=== PATIENT | male | born 1990 | race Caucasian/White ===

== ENCOUNTER → 2021-02-02 08:42 | Outpatient (CLI) | payer SELFPAY ==
--- NOTE | 2021-02-02 08:45 | US_ITS ---
PROCEDURE: US ABDOMEN LIMITED CLINICAL INDICATION: INGUINAL BULGE COMPARISON: No exams were available for comparison FINDINGS: Small nodes are present in the left inguinal region. These measure up to 1.7 cm. Small subcutaneous hypoechoic area is present also in the left inguinal area on the left measuring 4 x 2 mm of unknown etiology. No obvious bowel containing hernia. On right side there are small nodes present measuring up to 1.3 cm. No bowel containing hernia apparent. IMPRESSION: No obvious bowel containing hernia. Small bilateral inguinal lymph nodes. Subcutaneous small area of decreased echogenicity on the left of unknown etiology may be related to small subcutaneous cyst or even small area of infection. Please correlate with clinical parameters Dictated by: Jerry Kurtz MD 02/02/2021 13:53 Jerry Kurtz MD in [place] 02/02/2021 13:53
== END ==
PROVIDERS: PCP Nurse Practitioner Family; Visit Provider Nurse Practitioner Family
DX: R19.09 Other intra-abdominal and pelvic swelling, mass and lump (principal)
CPT/HCPCS: 76705

== ENCOUNTER 2023-11-07 05:41 | Emergency (ER) | payer SELFPAY ==
[2023-11-07 05:43] VITALS: BP 132/88; PULSE 67; RESP 16; TEMP 36.7; O2SAT 99; BMI 17.7
[2023-11-07 05:47] VITALS: BP 132/88; PULSE 70; O2SAT 98
--- NOTE | 2023-11-07 06:18 | [facility].EDGENADL ---
Discharge Plan Disposition Patient Disposition: Home, Self-Care Condition: Good Referrals Follow up/Referrals: Lalo Calhoun DO [Staff Physician] - See instructions Provider,MD Maurice [Primary Care Provider] - See instructions Activity Restrictions/Add. Instructions Additional Instructions/Restrictions: You were seen in the ED today due to fever/chills and joint pain. Labs, swabs, urine were reassuring. Please follow-up with primary care. You may take Tylenol/ibuprofen at home for fever and pain. Return to the ED if symptoms worsen or if new concerning symptoms arise. Thank you. Clinical Impressions Clinical Impression: Joint pain Qualifiers: Joint pain location: unspecified Qualified Code(s): M25.50 - Pain in unspecified joint Discharge ED Provider: Carlos Yancey General Adult HPI <Giancarlo Rm MD - Last Filed: 11/07/23 07:07> General Chief complaint: PAIN Stated complaint: fever,joint pain,black stuff on feet Time Seen by Provider: 11/07/23 05:55 Mode of Arrival: Ambulatory Source of Information: Patient Limitations: No Limitations Description of Symptoms (Recalled from ER Triage Doc. by RN): Pt presents with joint pain in his left hip and right knee. States he hashad a fever and chills for past 5 days. Temp is 98.1 today. Pt is also concerned for a black toothpaste like tar that has been growing between his toes for 10 yrs that he states smells like ammonia . History of Present Illness HPI narrative: 33-year-old male without significant past medical history presents for multiple complaints. He reports that he had a fever without other symptoms for the last 5 days approximately. Has not had fever today or yesterday though. He reports that he has had some transient joint pain. Yesterday his left knee and left hip hurt. Those are now getting better. He reports pain in his right knee now. Denies any swelling. No history of drug use, denies any concern for STDs. Reports no recent sore throat or viral symptoms. He also reports that he has had chronic growth of a dark substance between his toes. He reports it is worse during the winter but better during the summer. Reports its usually painful but feels okay now. He reports that he does not usually see doctors. He does not want anything for pain. Related Data Allergies Allergy/AdvReac Type Severity Reaction Status Date / Time No Known Allergies Allergy Verified 11/07/23 06:20 PFSH <Giancarlo Rm MD - Last Filed: 11/07/23 07:07> [facility] Disclaimer: The information contained in this section may have been updated after the patient was seen, as this information can be updated by other users. Social History (Updated 11/07/23 @ 07:07 by Giancarlo Rm MD) Smoking Status: Current every day smoker alcohol intake: never current occupational status: employed Travel in the last 8 weeks: None <Giancarlo Rm MD - Last Filed: 11/07/23 07:07> ROS Obtained: Yes All systems reviewed & no additional complaints except as documented Physical Exam <Giancarlo Rm MD - Last Filed: 11/07/23 07:07> General General appearance: alert and in no apparent distress Head Head exam: atraumatic and normocephalic Eye Eye exam: Present normal appearance, PERRL and EOMI ENT ENT exam: Present normal oropharynx and normal external ear exam Neck Neck exam: Present normal inspection and full ROM Chest Chest inspection: Present normal inspection and symmetric chest wall rise; Absent tenderness Respiratory Respiratory exam: Present normal lung sounds bilaterally; Absent respiratory distress Cardiovascular Cardiovascular exam: Present regular rate and normal rhythm Abdominal Exam Abdominal exam: Present soft; Absent distention, tenderness or guarding Extremities Exam Extremities exam: Present normal inspection and other (There is a adherent black substance between the patient's toes. No evidence of secondary infection.); Absent edema or joint swelling Back Exam Back exam: Present normal inspection; Absent tenderness Neurological Exam Neurological exam: Present alert and oriented X3; Absent motor sensory deficit Psychiatric Psychiatric exam: Present normal affect and normal mood Skin Skin exam: Present warm, dry and normal color Lymphatic Lymphatic Findings: no adenopathy Medical Decision Making <Giancarlo Rm MD - Last Filed: 11/07/23 07:07> Medical Records Medical records reviewed: Yes I reviewed the patient's medical records. Reji Inquiry Pt receiving controlled substance: No Reji was queried for this patient: No Vital Signs: 11/07/23 05:43 11/07/23 05:47 11/07/23 06:25 Temperature 98.1 F Temperature Source Oral Pulse Rate 70 66 Pulse Rate [Left] 67 Respiratory Rate 16 16 Blood Pressure 132/88 132/88 Blood Pressure [Right Arm] 132/88 Blood Pressure Mean 96 Blood Pressure Mean [Right Arm] 102 Blood Pressure Source Automatic Cuff Blood Pressure Source [Right Arm] Automatic Cuff Blood Pressure Position Sitting Blood Pressure Position [Right Arm] Sitting 02 Sat by Pulse Oximetry 99 98 99 Oxygen Delivery Method Room Air Room Air 11/07/23 06:49 11/07/23 07:32 Temperature Temperature Source Pulse Rate 61 60 Pulse Rate [Left] Respiratory Rate 18 Blood Pressure 137/85 134/86 Blood Pressure [Right Arm] Blood Pressure Mean 93 94 Blood Pressure Mean [Right Arm] Blood Pressure Source Blood Pressure Source [Right Arm] Blood Pressure Position Blood Pressure Position [Right Arm] 02 Sat by Pulse Oximetry 99 99 Oxygen Delivery Method Lab Data Lab results reviewed: Yes I reviewed the patient's lab results. Lab Results 11/07/23 06:25: WBC 9.8, RBC 4.86, Hgb 15.3, Hct 46.1, MCV 95.0 H, MCH 31.5 H, MCHC 33.1, RDW 13.8, Plt Count 288, MPV 7.5, Neut % (Auto) 56.3, Lymph % (Auto) 32.1, [place] % (Auto) 6.9, Eos % (Auto) 3.2, Baso % (Auto) 1.3, Neut # (Auto) 5.5, Lymph # (Auto) 3.2, [place] # (Auto) 0.7, Eos # (Auto) 0.3, Baso # (Auto) 0.1, ESR 9, Sodium 137, Potassium 4.0, Chloride 101, Carbon Dioxide 25, Anion Gap 15.0, BUN 15, Creatinine 1.00, Estimated Creat Clear 80, Estimated GFR 86, Est GFR ( Amer) 103, Glucose 104 H, Calcium 9.5, Total Bilirubin 0.6, AST 30, ALT 28, Alkaline Phosphatase 84, C-Reactive Protein 36.8 H, Total Protein 7.7, Albumin 4.6, Globulin 3.1, Albumin/Globulin Ratio 1.5, SARS-CoV-2 (PCR) Not detected, Influenza A Untype (PCR) Not detected, Influenza Type B (PCR) Not detected 11/07/23 06:35: Urine Color Dark yellow, Urine Appearance Clear, Urine pH 6.0, Ur Specific [place] >= 1.030, Urine Protein Negative, Urine Glucose (UA) Negative, Urine Ketones Trace, Urine Blood 2+, Urine Nitrate Negative, Urine Bilirubin 1+ A, Urine Urobilinogen 0.2, Ur Leukocyte Esterase Negative, Urine RBC 5-10, Urine WBC Occasional, Ur Squamous Epith Cells None, Urine Bacteria Trace, Urine Mucus 3+ 11/07/23 07:40: Group A Strep Rapid Negative 11/07/23 06:25 11/07/23 06:25 Orders (Tests/Meds): ORDERS Category Date Time Status CBC w/Auto Diff [Complete Blood Count Auto Diff] Stat Lab 11/07/23 06:25 Completed CMP [Comprehensive Metabolic Panel] Stat Lab 11/07/23 06:25 Completed CRP [C-Reactive Protein] Stat Lab 11/07/23 06:25 Completed ESR [Erythrocyte Sedimentation Rate] Stat Lab 11/07/23 06:25 Completed Lyme Ab, Modified 2-Tier Stat Lab 11/07/23 06:25 Received Rapid PCR Covid and Flu A/B Stat Lab 11/07/23 06:25 Completed Strep Scrn Group A (Rapid) Stat Lab 11/07/23 07:40 Completed UA [Urinalysis and Microscopic] Stat Lab 11/07/23 06:35 Completed Strep Screen Confirmation Stat Micro 11/07/23 07:40 Received Medical Decision Narrative: 33-year-old male without significant past medical history presents with fever for several days without an obvious source, now having migratory arthralgias in his lower extremities. Also complains of chronic toe issues.. History was obtained interactive discussion with patient,. On arrival, patient is [afebrile, hemodynamically stable, satting appropriately, alert, oriented x4, GCS 15], moving all extremities spontaneously. Full physical exam performed and significant for no joint swelling, erythema, sensory or motor deficits. Differential includes but is not limited to viral arthritis, Lyme disease, strep, flu, reactive arthritis Patient declined any medication for symptomatic management and correction of underlying abnormalities. Workup initiated including CBC CMP UA gonorrhea chlamydia ESR CRP Lyme testing, COVID flu. <Carlos Yancey MD - Last Filed: 11/07/23 08:06> Vital Signs: 11/07/23 05:43 11/07/23 05:47 11/07/23 06:25 Temperature 98.1 F Temperature Source Oral Pulse Rate 70 66 Pulse Rate [Left] 67 Respiratory Rate 16 16 Blood Pressure 132/88 132/88 Blood Pressure [Right Arm] 132/88 Blood Pressure Mean 96 Blood Pressure Mean [Right Arm] 102 Blood Pressure Source Automatic Cuff Blood Pressure Source [Right Arm] Automatic Cuff Blood Pressure Position Sitting Blood Pressure Position [Right Arm] Sitting 02 Sat by Pulse Oximetry 99 98 99 Oxygen Delivery Method Room Air Room Air 11/07/23 06:49 11/07/23 07:32 Temperature Temperature Source Pulse Rate 61 60 Pulse Rate [Left] Respiratory Rate 18 Blood Pressure 137/85 134/86 Blood Pressure [Right Arm] Blood Pressure Mean 93 94 Blood Pressure Mean [Right Arm] Blood Pressure Source Blood Pressure Source [Right Arm] Blood Pressure Position Blood Pressure Position [Right Arm] 02 Sat by Pulse Oximetry 99 99 Oxygen Delivery Method Lab Data Lab Results 11/07/23 06:25: WBC 9.8, RBC 4.86, Hgb 15.3, Hct 46.1, MCV 95.0 H, MCH 31.5 H, MCHC 33.1, RDW 13.8, Plt Count 288, MPV 7.5, Neut % (Auto) 56.3, Lymph % (Auto) 32.1, [place] % (Auto) 6.9, Eos % (Auto) 3.2, Baso % (Auto) 1.3, Neut # (Auto) 5.5, Lymph # (Auto) 3.2, [place] # (Auto) 0.7, Eos # (Auto) 0.3, Baso # (Auto) 0.1, ESR 9, Sodium 137, Potassium 4.0, Chloride 101, Carbon Dioxide 25, Anion Gap 15.0, BUN 15, Creatinine 1.00, Estimated Creat Clear 80, Estimated GFR 86, Est GFR ( Amer) 103, Glucose 104 H, Calcium 9.5, Total Bilirubin 0.6, AST 30, ALT 28, Alkaline Phosphatase 84, C-Reactive Protein 36.8 H, Total Protein 7.7, Albumin 4.6, Globulin 3.1, Albumin/Globulin Ratio 1.5, SARS-CoV-2 (PCR) Not detected, Influenza A Untype (PCR) Not detected, Influenza Type B (PCR) Not detected 11/07/23 06:35: Urine Color Dark yellow, Urine Appearance Clear, Urine pH 6.0, Ur Specific [place] >= 1.030, Urine Protein Negative, Urine Glucose (UA) Negative, Urine Ketones Trace, Urine Blood 2+, Urine Nitrate Negative, Urine Bilirubin 1+ A, Urine Urobilinogen 0.2, Ur Leukocyte Esterase Negative, Urine RBC 5-10, Urine WBC Occasional, Ur Squamous Epith Cells None, Urine Bacteria Trace, Urine Mucus 3+ 11/07/23 07:40: Group A Strep Rapid Negative Orders (Tests/Meds): ORDERS Category Date Time Status CBC w/Auto Diff [Complete Blood Count Auto Diff] Stat Lab 11/07/23 06:25 Completed CMP [Comprehensive Metabolic Panel] Stat Lab 11/07/23 06:25 Completed CRP [C-Reactive Protein] Stat Lab 11/07/23 06:25 Completed ESR [Erythrocyte Sedimentation Rate] Stat Lab 11/07/23 06:25 Completed Lyme Ab, Modified 2-Tier Stat Lab 11/07/23 06:25 Received Rapid PCR Covid and Flu A/B Stat Lab 11/07/23 06:25 Completed Strep Scrn Group A (Rapid) Stat Lab 11/07/23 07:40 Completed UA [Urinalysis and Microscopic] Stat Lab 11/07/23 06:35 Completed Strep Screen Confirmation Stat Micro 11/07/23 07:40 Received Medical Decision Narrative: 33-year-old male without significant past medical history presents with fever for several days without an obvious source, now having migratory arthralgias in his lower extremities. Also complains of chronic toe issues.. History was obtained interactive discussion with patient,. On arrival, patient is afebrile, hemodynamically stable, satting appropriately, alert, oriented x4, GCS 15, moving all extremities spontaneously. Full physical exam performed and significant for no joint swelling, erythema, sensory or motor deficits. Differential includes but is not limited to viral arthritis, Lyme disease, strep, flu, reactive arthritis Patient declined any medication for symptomatic management and correction of underlying abnormalities. Workup initiated including CBC CMP UA gonorrhea chlamydia ESR CRP Lyme testing, COVID flu. I assumed care of the patient with lab work pending. Labs reviewed, significant only for elevated CRP. ESR is normal. Lab work otherwise unremarkable. Urinalysis negative for infection. COVID/flu and strep are negative. Gonorrhea/chlamydia and Lyme remain pending at this time. On reevaluation, patient is resting comfortably and in no distress. Vital signs remained stable. He is appropriate for discharge at this time. Referral for primary care provided. Patient counseled on home care, given strict return precautions and agreeable to plan. Procedures <Giancarlo Rm MD - Last Filed: 11/07/23 07:07> Risk/Benefits of Procedure(s) Were Explained: Yes Critical Care <Giancarlo Rm MD - Last Filed: 11/07/23 07:07> Critical Care Time Critical Care Time: No <Carlos Yancey MD - Last Filed: 11/07/23 08:06> Critical Care Time Critical Care Time: No
[2023-11-07 06:25] VITALS: BP 132/88; PULSE 66; RESP 16; O2SAT 99
[2023-11-07 06:38] LABS: Coronavirus 19, PCR Not Detected (NotDetected); Influenza A, PCR Not Detected (NotDetected); Influenza B, PCR Not Detected (NotDetected)
[2023-11-07 06:40] LABS: Basophils # 0.1 K/mm3 (0-0.2); Basophils % 1.3 % (0.1-2.0); Eosinophils # 0.3 K/mm3 (0.0-0.4); Eosinophils % 3.2 % (0.1-12.0); Hematocrit 46.1 % (42.0-52.0); Hemoglobin 15.3 g/dL (14.1-18.0); Lymphocytes # 3.2 K/mm3 (0.7-4.5); Lymphocytes % 32.1 % (10-50); Mean Corpuscular HGB Conc 33.1 g/dL (31.8-35.4); Mean Corpuscular Hemoglobin 31.5 pg (27.0-31.2); Mean Platelet Volume 7.5 fl (7.4-10.4); Monocytes # 0.7 K/mm3 (0.1-1.0); Monocytes % 6.9 % (1.7-9.3); Neutrophils # 5.5 K/mm3 (1.8-7.8); Neutrophils % 56.3 % (37.0-80.0); Platelet Count 288 K/mm3 (142-424); Red Blood Count 4.86 M/mm3 (4.60-6.20); Red Cell Distribution Width 13.8 % (11.5-17.5); White Blood Count 9.8 K/mm3 (4.8-10.8)
[2023-11-07 06:47] LABS: Alanine Aminotransferase 28 U/L (12-78); Albumin Level 4.6 g/dl (3.5-5.0); Albumin/Globulin Ratio 1.5 (1.1-1.8); Alkaline Phosphatase 84 U/L (38-126); Aspartate Amino Transferase 30 U/L (17-59); Bilirubin,Total 0.6 mg/dl (0.2-1.3); Blood Urea Nitrogen 15 mg/dl (9-20); Calcium 9.5 mg/dl (8.4-10.2); Carbon Dioxide 25 mmol/L (22.0-30.0); Chloride 101 mmol/L (98-107); Creatinine Clearance Estimated 80 mL/min (50-200); Estimated Glomerular Filt Rate 86 ml/min (>60); GFR (African American) 103 ML/MIN (>60); Globulin 3.1 g/dL (1.3-3.2); Glucose 104 mg/dl (74-100); Sodium 137 mmol/L (136-145); Total Protein,Serum 7.7 g/dl (6.3-8.2)
[2023-11-07 06:49] VITALS: BP 137/85; PULSE 61; O2SAT 99
[2023-11-07 06:52] LABS: C-Reactive Protein 36.8 mg/L (0-4)
[2023-11-07 06:54] LABS: Microscopic, Urine URINE MICROSCOPIC (MICROSCOPIC)
[2023-11-07 07:00] LABS: Appearance,Urine CLEAR (Clear); Blood, Urine 2+ (Negative); Glucose,Urine (UA) Negative (Negative); Ketones,Urine TRACE (Negative); Leukocyte Esterase,Urine Negative (Negative); Nitrate,Urine Negative (Negative); Protein,Urine Negative (Negative); Specific Gravity, Urine >= 1.030 (1.005-1.030); Urobilinogen,Urine 0.2 EU/dl (0.2)
[2023-11-07 07:05] LABS: Bilirubin,Urine 1+ (Negative)
[2023-11-07 07:06] LABS: Color,Urine Dark Yellow (Yellow)
[2023-11-07 07:26] LABS: Bacteria,Urine Trace /lpf; WBC,Urine Occasional #/hpf (0-3)
[2023-11-07 07:27] LABS: Mucus,Urine 3+ /lpf
[2023-11-07 07:32] VITALS: BP 134/86; PULSE 60; RESP 18; O2SAT 99
[2023-11-07 07:55] LABS: Erythrocyte Sedimentation Rate 9 mm/hr (0-15)
[2023-11-07 07:57] LABS: Strep Scrn Group A (Rapid) Negative (Negative)
--- NOTE | 2023-11-07 07:59 | PC.NURSE ---
ED MD AT BEDSIDE TO UPDATE PT
[2023-11-07 08:09] VITALS: BP 140/94; PULSE 62; RESP 18; TEMP 36.6; O2SAT 97
[2023-11-08 13:58] LABS: Lyme Ab CIA Negative (Negative)
[2023-11-10 20:09] LABS: Neisseria gonorrhoeae, NAA Negative (Negative)
== END 2023-11-07 08:10 | disposition home or self-care (01) ==
PROVIDERS: Emergency Medicine; Emergency Provider Student in an Organized Health Care Education/Training Program
DX: M25.552 Pain in left hip (principal); M25.561 Pain in right knee
CPT/HCPCS: 80053; 81001; 85025; 85651; 86140; 86618; 87430; 87491; 87591; 87636; 99283

== ENCOUNTER 2025-01-24 13:33 | Emergency (ER) | payer BC, SELFPAY ==
[2025-01-24 13:45] VITALS: BP 123/73; PULSE 73; RESP 18; TEMP 36.7; O2SAT 99; BMI 17.7
[2025-01-24 13:54] VITALS: BP 122/78; PULSE 71; RESP 14; O2SAT 98
[2025-01-24 14:01] VITALS: BP 108/64; RESP 14
--- NOTE | 2025-01-24 14:04 | ED_ITS ---
<Statement entered by Oj Chery DO - 01/25/25 22:31> I was consulted by the SONJA, and we discussed the complexity of problems being addressed. I approved the treatment and management plan for this patient's care in the emergency department, thus performing a substantive portion of the medical decision making. Oj Chery DO Discharge Plan Disposition Patient Disposition: Home, Self-Care Condition: Good Referrals Follow up/Referrals: Provider,Referral, [Primary Care Provider, Medical] - See instructions Obie Anthony II, MD [Staff Physician, Gastroenterology] - See instructions Activity Restrictions/Add. Instructions Additional Instructions/Restrictions: Please return to the emergency room with any worsening signs or symptoms, please follow-up with GI physician in the upcoming days/weeks. Recommend marijuana cessation. Clinical Impressions Clinical Impression: Nausea & vomiting, History of cannabis abuse Instructions Patient Instructions: DI for Nausea -- Adult, DI for Vomiting -- Adult Print Language Print Language: Luxembourgish Discharge ED Provider: Oj Chery General Adult HPI General Chief complaint: Abdominal Pain Stated complaint: ABD Pain Time Seen by Provider: 01/24/25 13:39 Mode of Arrival: EMS Source of Information: Patient and EMS Description of Symptoms (Recalled from ER Triage Doc. by RN): Pt presents via EMS with complaints of n/v an abdominal pain starting @0430 this morning. Patient reports vomiting neon yellow in addition to having a bloody stool earlier this morning. Patient denies pain after zofran was administered by EMS. Pt also admits to daily use of marijuana. History of Present Illness HPI narrative: 34-year-old male presents the emergency department via EMS for nausea vomiting and episode of diarrhea this morning, patient admits to subjective fever and chills, denies any chest pain, denies any shortness of breath, denies any urinary symptomatology, denies melena hematochezia hematemesis or hemoptysis, nausea abdominal pain currently, denies any nausea currently, patient is current smoker, admits to current marijuana use, last use was last night, denies any alcohol use, initial triage vitals are unremarkable, patient tells me he was seen and treated before at multiple emergency department for similar complaints, states that this nausea vomiting abdominal cramping and changes in his bowel habits has been going on for quite some time, over the last several years , worsened today, this prompted emergency department visit, patient tells me he is vomited 100 times , around 4:30 AM this morning, described as neon yellow , of note, patient was given IV NS via EMS as well as IV Zofran, which did help his symptomatology. Patient denies any other real relevant past medical history, takes no other medications at home, tells me I do not go to the doctor much , does state that he has had what sounds like a colonoscopy/GI scope performed but this was several years ago , he tells me they said it looked good . Also of note, patient tells me I have had a tapeworm before . He then proceeds to pull up a picture on his cell phone and show me. He states right there is a tapeworm you cannot deny that . Please note that above description of symptoms, in this electronic medical record under categorization of recalled from ER triage doctor by RN are reflective of an initial nursing assessment, however, is not reflective of my full history and physical exam that was personally taken and clarified. Consequentially, this preceding description of symptoms, which may include the patient's categorized chief complaint in the EMR, do not reflect my personal clinical impression, and the ultimate description of history of present illness and patient stated complaints should be deferred to this section of the note. Unless stated otherwise or congruent with this section of the note, additional signs, symptoms, or incongruence should be interpreted as inaccurate with my clinical impression. Onset (ago): month(s) Related Data Allergies Allergy/AdvReac Type Severity Reaction Status Date / Time No Known Allergies Allergy Verified 11/07/23 06:20 [facility] Disclaimer: The information contained in this section may have been updated after the patient was seen, as this information can be updated by other users. Social History (Updated 11/07/23 @ 07:07 by Giancarlo Rm MD) Smoking Status: Current every day smoker alcohol intake: never current occupational status: employed Travel in the last 8 weeks?: None Have you lived/traveled outside [place] in past 30 days?: No Contact w/someone who lives/traveled outside [place] past 30 days?: No Exposure to someone with infectious disease in past 14 days?: No Do you have a fever (greater than 100.4 F or 38 C)?: No Have you tested positive for COVID-19?: No Exposed to someone with COVID-19 in past 14 days?: No Do you have a sore throat?: No Do you have a cough?: No Do you have any weakness?: No Do you have any diarrhea?: No Are you experiencing any unusual bleeding?: No Do you have any muscle aches/pain?: No Do you have any abdominal pain?: Yes Are you experiencing loss of taste or smell?: No ROS Obtained: Yes All systems reviewed & no additional complaints except as documented Physical Exam General General appearance: alert and in no apparent distress Head Head exam: atraumatic and normocephalic Eye Eye exam: Present PERRL and EOMI ENT ENT exam: Present mucous membranes moist Neck Neck exam: Present normal inspection Chest Chest inspection: Present normal inspection and symmetric chest wall rise Respiratory Respiratory exam: Present normal lung sounds bilaterally; Absent respiratory distress Cardiovascular Cardiovascular exam: Present regular rate and normal rhythm Abdominal Exam Abdominal exam: Present soft; Absent distention, tenderness, guarding, rebound or rigidity Extremities Exam Extremities exam: Present normal inspection Neurological Exam Neurological exam: Present alert and oriented X3 Psychiatric Psychiatric exam: Present normal affect Skin Skin exam: Present warm and dry Medical Decision Making Medical Records Medical records reviewed: Yes I reviewed the patient's medical records. Screening: Per USPSTF and CDC recommendations, given the prevalence of disease in our region, it is our hospital?s policy to screen for HIV and viral Hepatitis for all patients aged 18 and over and those with ongoing risk factors. Reji Inquiry Pt receiving controlled substance: No Reji was queried for this patient: No Vital Signs: 01/24/25 13:45 01/24/25 13:54 01/24/25 14:01 Temperature 98.0 F Temperature Source Oral Pulse Rate 71 Pulse Rate [Apical] 73 Respiratory Rate 18 14 14 Blood Pressure 122/78 108/64 L Blood Pressure [Right Arm] 123/73 Blood Pressure Mean [Right Arm] 89 Blood Pressure Source [Right Arm] Automatic Cuff Blood Pressure Position [Right Arm] Sitting 02 Sat by Pulse Oximetry 99 98 Oxygen Delivery Method Room Air Room Air 01/24/25 14:41 01/24/25 15:00 Temperature Temperature Source Pulse Rate 67 Pulse Rate [Apical] Respiratory Rate 12 11 L Blood Pressure 122/78 115/72 Blood Pressure [Right Arm] Blood Pressure Mean [Right Arm] Blood Pressure Source [Right Arm] Blood Pressure Position [Right Arm] 02 Sat by Pulse Oximetry 98 99 Oxygen Delivery Method Lab Data Lab results reviewed: Yes I reviewed the patient's lab results. Lab Results 01/24/25 13:41: WBC 9.3, RBC 4.65, Hgb 14.6, Hct 42.9, MCV 92.3, MCH 31.4 H, MCHC 34.0, RDW 13.4, Plt Count 333, MPV 9.5, Neut % (Auto) 88.4 H, Lymph % (Auto) 7.5 L, [place] % (Auto) 2.7, Eos % (Auto) 0.0 L, Baso % (Auto) 0.8, Neut # (Auto) 8.2 H, Lymph # (Auto) 0.7, [place] # (Auto) 0.3, Eos # (Auto) 0.0, Baso # (Auto) 0.1, Sodium 140, Potassium 4.2, Chloride 109 H, Carbon Dioxide 23, Anion Gap 12.2, BUN 10, Creatinine 0.70, Estimated Creat Clear 113, Estimated GFR 128, Est GFR ( Amer) 155, Glucose 104 H, Calcium 8.7, Magnesium 1.8, Total Bilirubin 0.6, AST 34, ALT 22, Alkaline Phosphatase 74, Total Protein 7.1, Albumin 4.6, Globulin 2.5, Albumin/Globulin Ratio 1.8, Lipase 51, HCV Ab TESSIE w/Rflx PCR Qn Negative, HIV Ag/Ab Combo Qual Negative 01/24/25 14:03: Urine Color Yellow, Urine Appearance Clear, Urine pH 8.0, Ur Specific [place] 1.015, Urine Protein Trace, Urine Glucose (UA) Negative, Urine Ketones 3+, Urine Blood Trace-i, Urine Nitrate Negative, Urine Bilirubin 1+ A, Urine Urobilinogen 0.2, Ur Leukocyte Esterase Negative, Urine RBC 3-5, Urine WBC None, Ur Squamous Epith Cells None, Urine Bacteria Trace 01/24/25 14:20: Urine Opiates Screen Negative, Urine Methadone Screen Negative, Ur Barbituates Screen Negative, Ur Phencyclidine Scrn Negative, Ur Amphetamines Screen Negative, U Benzodiazepines Scrn Negative, Urine Cocaine Screen Negative, U Marijuana (THC) Screen Positive H 01/24/25 14:30: Lactate 1.0 01/24/25 13:41 01/24/25 13:41 Orders (Tests/Meds): ORDERS Category Date Time Status Complete Blood Count Auto Diff Stat Lab 01/24/25 13:41 Completed Comprehensive Metabolic Panel Stat Lab 01/24/25 13:41 Completed Diarrhea 23 Panel, PCR Stat Lab 01/24/25 14:03 Ordered Drug Screen,Urine Stat Lab 01/24/25 14:20 Completed HIV Combo Stat Lab 01/24/25 13:41 Completed Hepatitis C Ab Qual. W/ RFX Stat Lab 01/24/25 13:41 Completed Lactic Acid Stat Lab 01/24/25 14:30 Completed Lipase Stat Lab 01/24/25 13:41 Completed Magnesium Stat Lab 01/24/25 13:41 Completed Urinalysis and Microscopic Stat Lab 01/24/25 14:03 Completed Ova + Parasite Exam Stat Micro 01/24/25 14:04 Ordered Medical Decision Narrative: 34-year-old male presents emergency department with nausea vomiting diarrhea, that will wax and wane for the last year, worsened this morning, differential diagnose include but not limited to cannabinoid hyperemesis syndrome, gastroenteritis, gastroparesis, cardiac arrhythmia, electrolyte disturbance, ileus, colitis, among others. I discussed the patient's case with attending Will obtain basic laboratory studies, diarrhea PCR panel, stool ova and parasites, UDS, lactic acid, lipase, magnesium, urinalysis, and EKG. CBC is unremarkable UA is notable for 1+ bilirubin otherwise unremarkable, nitrites negative, leukocyte esterase negative, trace hematuria UDS is positive for marijuana otherwise negative CMP is unremarkable. I discussed all these results with the patient at bedside, symptoms have improved, nausea is improved he is resting comfortably/sleeping in the bed, abdominal exam remains benign, patient tells me unfortunately he is unable to give a sample at this time, he tells me I am like clockwork and will not be able to use the restroom until 5 AM tomorrow morning . But states he would be willing to bring stool sample by tomorrow. Patient has no other acute complaints, I offered to prescribe the patient antiemetic medication, the patient tells me do not bother I will not pick it up . I then was discussing next steps with the patient, he then tells me patient tells me I may not bring the stool sample by tomorrow because if you can figure out what is wrong with me I will just go somewhere else . I was able to give the patient strict ED return precautions, GI follow-up, patient voiced understanding. Patient then proceeded to rip out his IV and leave the emergency department after signing his discharge paperwork. Critical Care Critical Care Time Critical Care Time: No
[2025-01-24 14:11] LABS: Albumin Level 4.6 g/dl (3.5-5.0); Chloride 109 mmol/L (98-107)
[2025-01-24 14:12] LABS: Potassium 4.2 mmoL/L (3.5-5.1); Sodium 140 mmol/L (136-145)
[2025-01-24 14:14] LABS: Alanine Aminotransferase 22 U/L (12-78); Alkaline Phosphatase 74 U/L (38-126); Anion Gap 12.2 mEq/L (5-15); Aspartate Amino Transferase 34 U/L (17-59); Bilirubin,Total 0.6 mg/dl (0.2-1.3); Blood Urea Nitrogen 10 mg/dl (9-20); Carbon Dioxide 23 mmol/L (22.0-30.0); Creatinine Clearance Estimated 113 mL/min (50-200); Creatinine,Serum 0.70 mg/dl (0.66-1.25); Estimated Glomerular Filt Rate 128 ml/min (>60); GFR (African American) 155 ML/MIN (>60)
[2025-01-24 14:15] LABS: Albumin/Globulin Ratio 1.8 (1.1-1.8); Calcium 8.7 mg/dl (8.4-10.2); Globulin 2.5 g/dL (1.3-3.2); Glucose 104 mg/dl (74-100); Lipase 51 U/L (23-300); Magnesium 1.8 mg/dl (1.6-2.3); Total Protein,Serum 7.1 g/dl (6.3-8.2)
[2025-01-24 14:16] LABS: Hematocrit 42.9 % (42.0-52.0); Hemoglobin 14.6 g/dL (14.1-18.0); Immature Granulocytes % 0.6 %; Mean Corpuscular HGB Conc 34.0 g/dL (31.8-35.4); Mean Corpuscular Hemoglobin 31.4 pg (27.0-31.2); Mean Corpuscular Volume 92.3 fl (80-94); Nucleated Red Blood Cells % 0 %; Platelet Count 333 K/mm3 (142-424); Red Blood Count 4.65 M/mm3 (4.60-6.20); Red Cell Distribution Width-SD 45.3 fL; White Blood Count 9.3 K/mm3 (4.8-10.8)
[2025-01-24 14:28] LABS: Microscopic, Urine URINE MICROSCOPIC (MICROSCOPIC)
[2025-01-24 14:29] LABS: Color,Urine YELLOW (Yellow); Glucose,Urine (UA) Negative (Negative); Ketones,Urine 3+ (Negative); Leukocyte Esterase,Urine Negative (Negative); PH,Urine 8.0 (5.0-8.5); Protein,Urine TRACE (Negative); Specific Gravity, Urine 1.015 (1.005-1.030); Urobilinogen,Urine 0.2 EU/dl (0.2)
--- NOTE | 2025-01-24 14:35 | ECG_ITS ---
APPROVED REPORT Exam: Resting ECG HR:66 bpm ECG Measurements Heart Rate 66 AXES MN 137 P -3 QRSd 107 QRS 91 QT 369 T 74 QTc 382 Conclusion Normal sinus rhythm Normal axis Normal Intervals Benign Early Repole NO STEMI Electronically signed by : Oj Chery, 01/24/2025 17:28:11
[2025-01-24 14:41] VITALS: BP 122/78; RESP 12; O2SAT 98
[2025-01-24 14:41] LABS: Bilirubin,Urine 1+ (Negative)
[2025-01-24 14:42] LABS: Bacteria,Urine Trace /lpf
[2025-01-24 14:47] LABS: Benzodiazepines Screen,Urine Negative ng/ml (<200)
[2025-01-24 14:48] LABS: Amphetamine/Metha Screen,Urine Negative ng/ml (<1000)
[2025-01-24 14:49] LABS: Barbiturates Screen,Urine Negative ng/ml (<200); Methadone Screen,Urine Negative ng/ml (<300)
[2025-01-24 14:51] LABS: Opiate Screen,Urine Negative ng/ml (<300)
[2025-01-24 14:52] LABS: Phencyclidine Screen,Urine Negative ng/ml (<25)
[2025-01-24 15:00] VITALS: BP 115/72; PULSE 67; RESP 11; O2SAT 99
[2025-01-24 15:38] LABS: Hepatitis C Ab Qual. W/ RFX NEGATIVE (Negative)
[2025-01-24 15:54] VITALS: BP 111/56; PULSE 78; RESP 21; TEMP 36.7; O2SAT 100
== END 2025-01-24 15:56 | disposition home or self-care (01) ==
PROVIDERS: Physician Assistant; Emergency Provider Student in an Organized Health Care Education/Training Program
DX: R10.9 Unspecified abdominal pain (principal); R11.2 Nausea with vomiting, unspecified; F12.90 Cannabis use, unspecified, uncomplicated; F17.290 Nicotine dependence, other tobacco product, uncomplicated
CPT/HCPCS: 80053; 80307; 81001; 83605; 83690; 83735; 85025; 86803; 87389; 93005; 99284